=== PATIENT | female | born 1995 | race Caucasian/White ===

== ENCOUNTER 2019-09-05 16:49 | Emergency (ER) | payer OTHER, SELFPAY ==
--- NOTE | ~2019-09-05 | US_ITS ---
EXAMINATION: US OB <= 14 weeks fetus DATE: 09/05/2019 17:55 INDICATION: Pelvic pain post medically induced TECHNIQUE: Real-time pelvic transabdominal and transvaginal ultrasound was performed. COMPARISON: None. FINDINGS: The uterus measures 9.3 x 5.2 x 6.8 cm. There is an intrauterine gestational sac. There is a 2.0 x 0.4 x 0.6 cm hypoechoic area adjacent to the gestational sac. A yolk sac is identified. Feta l heart motion is identified measuring 121 beats per minute (bpm) by M-mode Doppler. The crown rump length measures 2 cm , which correlates with an estimated gestational age of 8 weeks and 4 day(s ) (+/-) 5 day(s). The right ovary measures 2.8 x 2.2 x 2.1 cm. The left ovary measures 2.8 x 1.4 x 2.1 cm. There is no free fluid in the pelvis. IMPRESSION: 1. Live intrauterine with an estimated gestational age of 8 weeks and 4 day(s) (+/-) 5 day( s) and an estimated delivery date of 04/12/2020. 2. Small subchorionic hematoma. Reviewed, dictated and finalized at location A. IMPRESSION: 1. Live intrauterine with an estimated gestational age of 8 weeks and 4 day(s) (+/-) 5 day(s) and an estimated delivery date of 04/12/2020. 2. Small subchorionic hematoma.
[2019-09-05 16:52] VITALS: BP 124/58; PULSE 73; RESP 20; TEMP 37.2; O2SAT 100
--- NOTE | 2019-09-05 17:49 | ED.ABDPAIN ---
HPI - Abdominal Pain General Chief Complaint: Abdominal Pain Stated Complaint: ABD CRAMPING/N/V Time Seen by Provider: 09/05/19 16:54 Source: patient Mode of arrival: EMS Limitations: no limitations History of Present Illness HPI narrative: Patient presents with chief complaint of intense lower abdominal cramping that began after beginning pharmaceutical yesterday. Patient states that she had a 7-week in the uterine confirmed at the [facility] and was given pills for abortive treatment. Patient reports Mifeprex and misoprostol. Patient states that she took pills yesterday at 11 and today at 2 PM. Patient states 30 minutes after taking the pills today she began having excruciating abdominal pain for which she called the ambulance. Patient denies having any vaginal bleeding at this time. Patient states she has vomited due to the pain. Patient denies any other past medical history or daily medications. Patient denies any prior pregnancies- miscarriages or abortions. Related Data Home Medications Medication Instructions Recorded Confirmed fluoxetine 40 mg PO QAM 09/05/19 omeprazole 20 mg PO DAILY 09/05/19 Allergies Allergy/AdvReac Type Severity Reaction Status Date / Time No Known Allergies Allergy Unknown Verified 09/05/19 17:02 Review of Systems Review of Systems: Narrative: CONSTITUTIONAL: Denies fever, chills, or sweats. EYES: Denies visual changes, redness, or discharge. ENT: Denies rhinorrhea, congestion, sore throat, or otalgia. CARDIOVASCULAR: Denies chest pain, palpitations, or edema. RESPIRATORY: Denies cough or dyspnea. GASTROINTESTINAL: Reports lower abdominal pain, nausea, vomiting, denies diarrhea. GENITOURINARY: Denies vaginal bleeding dysuria or hematuria. SKIN: Denies rash or itching. MUSCULOSKELETAL: Denies back pain, joint pain, or myalgia. NEUROLOGIC: Denies headache, numbness, dizziness, or weakness. PSYCHIATRIC: Denies anxiety or depression. PMFSH Social History Social History Gender identity (if verbalized by the patient): Female Exam Narrative: Exam Narrative: GENERAL: Well-appearing, well-nourished, animated. Curled in position. HEAD: Normocephalic, atraumatic. EYES: PERRLA and EOMI. ENT: Nares clear, no rhinorrhea or epistaxis. Mucous membranes moist. Oropharynx without tonsillar hypertrophy exudate or other lesions. Bilateral TMs pearly rader nonbulging NECK: Supple. No adenopathy or masses. No carotid bruits or JVD CHEST: Clear to auscultation. No respiratory distress. No wheezes rales or rhonchi HEART: Regular rate and rhythm. No murmur heard. Normal peripheral pulses. ABDOMEN: Soft, nondistended, diffuse lower abdominal tenderness. normal active bowel sounds. EXTREMITIES: Normal range of motion. No edema. SKIN: Warm, dry, no rash. NEURO: No focal deficits. Alert and oriented x3. PSYCH: Normal mood and affect. Course Vital Signs Vital signs: Vital Signs Temperature 98.9 F 09/05/19 16:52 Pulse Rate 73 09/05/19 16:52 Respiratory Rate 20 09/05/19 16:52 Blood Pressure 124/58 L 09/05/19 16:52 Pulse Oximetry 100 09/05/19 16:52 Temperature 98.9 F 09/05/19 16:52 Pulse Rate 73 09/05/19 16:52 Respiratory Rate 20 09/05/19 16:52 Blood Pressure 124/58 L 09/05/19 16:52 Pulse Oximetry 100 09/05/19 16:52 MDM - Abdominal Pain MDM Narrative Medical decision making narrative: Spoke with [facility] nurse Ania. Patient was given Tylenol 3, ibuprofen, promethazine. Patient instructed to take those medications as instructed and to follow-up with [facility] if she has any additional questions or concerns. There were no abnormalities noted on ultrasound and patient is having a normal medical . Imaging Data Radiologist's impression: ITS Impressions Ultrasound 09/05/19 18:10 IMPRESSION: 1. Live intrauterine with an estimated gestational age of 8 weeks and 4 day(s) (+/-) 5 day(s) and an estimated
[2019-09-05 19:13] VITALS: BP 122/70; PULSE 76; RESP 20; O2SAT 99
== END 2019-09-05 19:17 | disposition home or self-care (01) ==
PROVIDERS: Emergency Provider Emergency Medicine
DX: O04.80 (Induced) termination of pregnancy with unspecified complications (principal)
CPT/HCPCS: 76801; 96365; 99284; J0131

== ENCOUNTER 2021-09-25 01:02 | Emergency (ER) | payer OTHER, SELFPAY ==
--- NOTE | ~2021-09-25 | XR_ITS ---
EXAMINATION: XR wrist RT min 3V INDICATION: Right wrist pain TECHNIQUE: Four views of the right wrist are obtained. COMPARISON: None available FINDINGS: There is no fracture, dislocation, or subluxation. The bones, soft tissues, and joint space s are normal. IMPRESSION: 1. No acute osseous abnormality. Reviewed, dictated and finalized at location A.
[2021-09-25 01:06] VITALS: BP 132/58; PULSE 105; RESP 16; TEMP 36.6; O2SAT 100
--- NOTE | 2021-09-25 01:19 | ED.GENADULT ---
HPI - General Adult General Chief complaint: Extremity Injury, Upper Stated complaint: WRIST PAIN Time Seen by Provider: 09/25/21 01:07 Source: RN notes reviewed History of Present Illness HPI narrative: Patient presents to the emergency department from home for right wrist pain. 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 felt a pop in her wrist she states since that time she has had intermittent pain in this region she denies any direct trauma or injury she states that the pain seems to be worse with twisting of the hand such as turning on her car she states the pain does radiate up into the lateral hand she denies any numbness or tingling or any other symptoms Related Data Home Medications Medication Instructions Recorded Confirmed fluoxetine 40 mg PO QAM 09/05/19 omeprazole 20 mg PO DAILY 09/05/19 Allergies Allergy/AdvReac Type Severity Reaction Status Date / Time No Known Allergies Allergy Unknown Verified 09/25/21 01:08 Review of Systems Review of Systems: Gen.: Denies fevers or chills Musculoskeletal: See HPI : Denies risk of Neuro: Denies numbness, tingling, weakness Skin: Denies rash Endo: Denies DM PMFSH Past Medical History Medical History (Updated 09/25/21 @ 01:26 by Tony Lawson DO) Patient denies significant medical history Social History Social History (Updated 09/25/21 @ 01:20 by Tony Lawson DO) Smoking status: Never smoker Gender identity (if verbalized by the patient): Female Exam Narrative: APPEARANCE: No acute distress, nontoxic, resting in bed Eyes: EOMI HEENT: Normocephalic, atraumatic, RESPIRATORY: No respiratory distress MUSCULOSKELETAl: Mild tenderness palpation of the right dorsal ulna no swelling or ecchymosis no tenderness of the remainder of the wrist or hand no tenderness of the elbow pain in the wrist with full pronation as well as trying to press her self up on the bed with a extended wrist, radial pulse 2+ neurovascular intact full flexion-extension of all 5 MCP and IP joints NEURO: Awake and alert. Following commands, speech normal, no focal deficits SKIN:: Warm, dry. Normal Color no rash or lesions Course Course Emergency Course: Patient states that she does have a cock-up wrist splint at home but is only worn it intermittently and then gone to urgent care and they told her to stop wearing it and instead use Titi wrap this time discussed with patient wearing the cock-up wrist splint for the next 1 week follow-up with orthopedics Discussed with patient results of workup and diagnosis. Discussed need for follow-up with primary care, proper use of medication, and reasons to return to the emergency department. Patient understands and agrees to current treatment plan Vital Signs Vital signs: Vital Signs Temperature 97.8 F 09/25/21 01:06 Pulse Rate 105 H 09/25/21 01:06 Respiratory Rate 16 09/25/21 01:06 Blood Pressure 132/58 L 09/25/21 01:06 Pulse Oximetry 100 09/25/21 01:06 Temperature 97.8 F 09/25/21 01:06 Pulse Rate 105 H 09/25/21 01:06 Respiratory Rate 16 09/25/21 01:06 Blood Pressure 132/58 L 09/25/21 01:06 Pulse Oximetry 100 09/25/21 01:06 Medical Decision Making [facility] Narrative Medical decision making narrative: Patient?s injury is consistent with muscular skeletal etiology. No signs of neurologic or vascular compromise to exam. Compartments are soft without signs of compartment syndrome. Pain is consistent with exam and injury. Pain with tenderness over the lateral wrist question a triangular fibrocartilage complex tear versus other can have patient use cock-up wrist splint follow-up with orthopedics discussed need for possible MRI if pain continues Vital Signs Vital Signs: Vital Signs Temperature 97.8 F 09/25/21 01:06 Pulse Rate 105 H 09/25/21 0
== END 2021-09-25 01:36 | disposition home or self-care (01) ==
PROVIDERS: Emergency Provider Emergency Medicine
DX: S63.501A Unspecified sprain of right wrist, initial encounter (principal); X50.0XXA Overexertion from strenuous movement or load, initial encounter; Y99.0 Civilian activity done for income or pay
CPT/HCPCS: 73110; 99283